=== PATIENT | male | born 1995 | race Caucasian/White ===

== ENCOUNTER 2016-10-22 18:14 | Emergency (ER) | payer OTHER ==
[~2016-10-22] VITALS: Ht 185.4 cm; Wt 70.0 kg
[2016-10-22 18:17] VITALS: BP 122/73; PULSE 106; RESP 20; TEMP 98.2; O2SAT 95
[2016-10-22] MEDS ORDERED: [UNRECOGNIZED DRUG - CODE] (18:39)
--- NOTE | 2016-10-22 19:52 | RADRPT ---
EXAM DATE/TIME: 10/22/2016 19:23 [place] COMPARISON: No previous studies available for comparison. INDICATIONS : Pain from twisting motion while skateboarding. MEDICAL HISTORY : None. SURGICAL HISTORY : None. ENCOUNTER: Initial ACUITY: 1 day PAIN SCORE: 4/10 LOCATION: Left foot. FINDINGS: No fracture seen of the left foot. Mild dorsal angulation seen across the second through fourth metat arsophalangeal joints, presumably developmental but please correlate clinically. The tibial sesamoid is bipartite. CONCLUSION: Intact left foot. Mild dorsal angulation across the second through fourth metatarsophalangeal joints, please see above and correlate clinically. Magdy Barber MD on October 22, 2016 at 19:49 Board Certified Radiologist. This report was verified electronically.
--- NOTE | 2016-10-22 19:58 | PD ---
HPI Chief Complaint: Injury Time Seen by Provider: 18:39 Travel History International Travel<30 days: No Contact w/Intl Traveler<30days: No Traveled to known affect area: No History of Present Illness HPI Patient is a 21-year-old male with history of hemophilia A who presents the emergency department with complaint of left foot pain. Patient was in a skateboarding accident yesterday and hit his left foot. Patient takes factor VIII every other day at baseline and took his typical factor dose this morning as scheduled. He continues to note a swelling and pain over the first metatarsal of the left foot. Pain is mild to moderate. He notes mild swelling , has been putting ice on this with some improvement. PFSH Past Medical History Diminished Hearing: No Medical other: Yes (hemophilia) Tetanus Vaccination: Unknown Influenza Vaccination: Yes ?: Not Past Surgical History Surgical History: No Previous Surgery Social History Alcohol Use: Yes (occ) Tobacco Use: No Substance Use: No Allergies-Medications (Allergen,Severity, Reaction): Coded Allergies: No Known Allergies (Unverified , 10/22/16) Reported Meds & Prescriptions Reported Meds & Active Scripts Active Reported [place] Inj (Antihemophilic Factor (Recomb) Inj) 3,000 Unit Inj Review of Systems Except as stated in HPI: all other systems reviewed are Neg Physical Exam Narrative GENERAL: Well-appearing male in no acute distress SKIN: Warm and dry. HEAD: Normocephalic. EYES: No scleral icterus. No injection or drainage. ENT: Mucous membranes pink and moist. CARDIOVASCULAR: Regular rate and rhythm. RESPIRATORY: No accessory muscle use. GASTROINTESTINAL: Abdomen soft, non-tender, nondistended. MUSCULOSKELETAL: Mild swelling over the first MTP and metatarsal ray. Mild contusion. Normal strength, distal sensation and pulses. NEUROLOGICAL: Awake and alert. Motor grossly within normal limits. Normal speech. PSYCHIATRIC: Appropriate mood and affect; insight and judgment normal. Data Data Last Documented VS Vital Signs Date Time Temp Pulse Resp B/P Pulse Ox O2 Delivery O2 Flow Rate FiO2 10/22/16 18:35 68 16 100 Room Air 10/22/16 18:17 98.2 122/73 Orders Foot, Complete ([id number]) (10/22/16 ) [facility] Medical Decision Making Medical Screen Exam Complete: Yes Emergency Medical Condition: Yes Medical Record Reviewed: Yes Differential Diagnosis Patient is a 21-year-old hemophilia a patient here with pain around the left foot after skateboarding injury yesterday. Differential includes fracture, contusion, sprain. Patient has arty taken factor since the accident and does not warrant further treatment. Narrative Course X-ray of the left foot was obtained showing no evidence of bony abnormality. Patient is able to ambulate with minimal pain, will be discharged home with crutches as needed. Diagnosis Primary Impression: Sprain of left foot Qualified Code: S93.602A - Sprain of left foot, initial encounter Referrals: Primary Care Physician as needed Additional Instructions: Tylenol, ibuprofen as needed for pain. Ice the affected area 20 minutes at a time 3-4 times daily. Med/Other Pt SpecificInfo: No Change to Meds Disposition: 01 DISCHARGE HOME Condition: Stable Cici Masters MD Oct 22, 2016 19:58
== END 2016-10-22 20:30 | disposition home or self-care (01) ==
LOC: NEPE 18:14
DX: S93.602A Unspecified sprain of left foot, initial encounter (principal); D66 Hereditary factor VIII deficiency; X58.XXXA Exposure to other specified factors, initial encounter; Y93.51 Activity, roller skating (inline) and skateboarding
CPT/HCPCS: 73630; 99283; E0113